=== PATIENT | male | born 1985 | race Hispanic/Latino ===

== ENCOUNTER 2021-09-01 20:52 | Emergency (ER) | payer SELFPAY ==
[2021-09-01 22:21] LABS: Urine Blood Trace-intact (Negative); Urine Glucose 2+ (Negative); Urine Protein Negative (Negative)
[2021-09-01 23:12] LABS: Absolute Lymphocytes (CBC) 1.5 K/uL (0.7-4.9); Hematocrit 47.6 % (39.6-49.0); Lymphocytes % 33.9 % (15.3-44.8); MPV 8.5 fL (7.6-11.3); RBC Red Blood Cell Count 5.42 M/uL (4.33-5.43)
[2021-09-01 23:13] LABS: Protime INR 1.05
[2021-09-01 23:17] LABS: Barbiturates NEGATIVE (NEGATIVE); Benzodiazepines NEGATIVE (NEGATIVE); Cocaine NEGATIVE (NEGATIVE); METHAMPHETAM NEGATIVE (NEGATIVE); Methadone NEGATIVE (NEGATIVE); Opiates NEGATIVE (NEGATIVE); Phencyclidine NEGATIVE (NEGATIVE); THC Cannibis POSITIVE (NEGATIVE)
[2021-09-01 23:23] LABS: ALT/SGPT 20 U/L (12-78); AST/SGOT 9 U/L (15-37); Albumin 3.5 g/dL (3.4-5.0); Alkaline Phosphatase 78 U/L (45-117); BUN Blood Urea Nitrogen 22 mg/dL (7-18); Bicarbonate 24 mmol/L (21-32); Bilirubin Direct < 0.1 mg/dL (0-0.2); Bilirubin Total 0.5 mg/dL (0.2-1.0); Potassium 3.9 mmol/L (3.5-5.1); Protein, Total 7.7 g/dL (6.4-8.2); Sodium Level 130 mmol/L (136-145)
[2021-09-01 23:25] LABS: Glucose Level 422 mg/dL (74-106)
[2021-09-02] MEDS ORDERED: NA CHLORIDE 0.9% 1,000 ML ONE (00:09)
[2021-09-02] MEDS ORDERED: INSULIN -REGULAR HUMAN 50 UNIT/0.5 ML ML ONE (00:09)
--- NOTE | 2021-09-02 01:14 | ER ---
Nurse's Notes [facility] Name: Kamlesh Neely Jr Age: 36 yrs Sex: Male : 1985 Arrival Date: 09/01/2021 Time: 20:53 Bed 18 Private MD: Diagnosis: Diabetes mellitus due to underlying condition with hyperglycemia;SARS-associated coronavirus as the cause of diseases classified elsewhere;Other recurrent depressive disorders Presentation: 09/01 21:47 Chief complaint: Patient states: recently from his , found out she may iw have been cheating , is having suicidal ideation , has superficial lacerations to both wrists, stopped taking his psych meds and stopped going to therapy, was living in [place] with his and came back to [place] a month ago. Coronavirus screen: At this time, the client does not indicate any symptoms associated with coronavirus-19. Ebola Screen: Patient negative for fever greater than or equal to 101.5 degrees Fahrenheit, and additional compatible Ebola Virus Disease symptoms Patient denies exposure to infectious person. Patient denies travel to an Ebola-affected area in the 21 days before illness onset. No symptoms or risks identified at this time. Initial Sepsis Screen: Does the patient meet any 2 criteria? No. Patient's initial sepsis screen is negative. Does the patient have a suspected source of infection? No. Patient's initial sepsis screen is negative. Risk Assessment: Do you want to hurt yourself or someone else? Patient reports desire/thoughts of hurting themselves or someone else. Provider notified. Onset of symptoms was September 01, 2021. 21:47 Method Of Arrival: Ambulatory iw 21:47 Acuity: CLARY 2 iw Historical: - Allergies: 21:55 Tamiflu; iw - PMHx: 21:55 depression with psychotic features; iw 23:54 Diabetes mellitus; ld1 23:55 Hypertensive disorder; Hypercholesterolemia; ld1 - PSHx: 21:55 left foot; iw - Immunization history:: Client reports having NOT received the Covid vaccine. - Social history:: Smoking status: Patient uses street drugs, marijuana. Screenin:00 Abuse screen: Denies threats or abuse. Denies injuries from another. Nutritional ld1 screening: No deficits noted. Tuberculosis screening: No symptoms or risk factors identified. Fall Risk None identified. Assessment: 22:00 General: Appears in no apparent distress. comfortable, Behavior is calm, cooperative, ld1 appropriate for age, crying. 22:00 Pain: Denies pain. Neuro: Level of Consciousness is awake, alert, obeys commands, ld1 Oriented to person, place, time, situation. Cardiovascular: Capillary refill < 3 seconds Patient's skin is warm and dry. Respiratory: Airway is patent Respiratory effort is even, unlabored, Respiratory pattern is regular, symmetrical. GI: Abdomen is round non-distended. : No signs and/or symptoms were reported regarding the genitourinary system. EENT: No signs and/or symptoms were reported regarding the EENT system. Derm: No signs and/or symptoms reported regarding the dermatologic system. 09/02 08:00 Reassessment: Pt is aaox4, when asked about SI/HI, reports "I still think I'm better eo2 off gone", denies HI. Pt states he's written 2 suicidal notes since he received e-mails from his , states his mother had encouraged him to reach out to her, states " I wanted to hurt myself, I wanted to when I saw those emails". Pt revealed that his told him in the email that "I destroyed our marriage, everything was my fault, that she doesn't know what poisoned my mind". Pt denies auditory or visual hallucinations. Pt is sad, tearful, states " I am an over thinker, I just miss her so much". Pt noted with healing lacerations to b/l arms, self inflicted with blade per pt. Pt denies any current plans to harm himself or others. Pt denies CP, SOB, GUERRERO, dizziness. Noted with cough, and reported lower back pain. Blood glucose check 267, Nathaniel CAROLINA made aware. Pt appears in NAD. Breakfast at bedside. Will continue to monitor. 08:00 Neuro: Level of Consciousness is awake, alert, obeys commands, Oriented to person, eo2 place, time, situation. Cardiovascular: No deficits noted. Denies chest pain, shortness of breath. Respiratory: Reports cough that is non-productive, Airway is patent Respiratory effort is even, unlabored, Respiratory pattern is regular, symmetrical, Denies shortness of breath. Musculoskeletal: Reports pain in lower back. 10:45 Reassessment: Pt's sister at bedside, Frieda [phone], Pt's mom info: Yessy eo2 [phone]. 15:48 Reassessment: Pt has been calm and cooperative, lunch tray provided, pt ate 50% of eo2 meals, complained of RAC PIV site discomfort, line checked, good blood return and flushes well, states it's okay to leave in place. Pt appears in NAD, comfort measures met, will continue to monitor. 18:08 Reassessment: pt requested to speak with his sister, provided the phone, pt noted to eo2 sitting behind the cabinet in the room, states he feels comfortable on the floor, denies any SI/HI at this time, verbalized "I'm not trying to hurt myself". Pt agreeable to be visible in the room, sitting in bed, quiet. Pt made aware his sister can come see him in the room. Dinner tray provided, pt in NAD. Will continue to monitor. 18:45 Reassessment: Pt's mother at bedside visiting with pt, pt speaking with mother, eo2 smiling, voiced desire to be discharged home with family, states he has a good support system and "My family love me". 19:39 Reassessment: Marin CARCAMO at bedside to speak with pt and sister, pt to be discharged home eo2 with family per PA. Psych: 08:00 [place] Suicide Severity Screening: In the past month, have you wished you were eo2 or wished you could go to sleep and not wake up? Patient responds "yes." "In the past month, have you actually had any thoughts of killing yourself?" Patient responds "yes." "In your lifetime, have you ever done anything, started to do anything, or prepared to do anything to end your life?" Patient responds "yes." Patient reports suicidal intent within 3 past months. Subjective: Patient's mood is sad, Delusions are denied, Hallucinations are denied Having thoughts of presently denies SI/HI. Objective: Patient is cooperative, Speech is normal, Affect is flat, Patient has mutilated themselves by B/L arm lacerations, pt states newest one was done 1.5 months ago. Interventions: Removed personal items and placed in bag. Pt received in report with personal clothes on, pt very calm and cooperative. Safety Checks: Personal items have been removed. Door is open. No visitors are present at this time. Pt denies substance abuse. Commitment: Patient will be a voluntary commitment. Vital Signs: 09/01 21:47 BP 151 / 104; Pulse 105; Resp 16; Temp 97.8; Pulse Ox 99% on R/A; iw 23:11 BP 149 / 99; Pulse 99; Resp 18; Pulse Ox 99% on R/A; ld1 09/02 00:10 BP 152 / 88; Pulse 86; Resp 18; Pulse Ox 100% on R/A; ld1 01:30 BP 148 / 89; Pulse 89; Resp 18; Pulse Ox 100% on R/A; ld1 03:27 BP 151 / 86; Pulse 87; Resp 18; Pulse Ox 99% on R/A; ld1 05:37 BP 149 / 91; Pulse 91; Resp 18; Pulse Ox 99% on R/A; ld1 08:00 BP 145 / 103; Pulse 97; Resp 17; Temp 99.0; Pulse Ox 95% ; Pain 3/10; eo2 12:00 BP 125 / 88; Pulse 102; Resp 17; Pulse Ox 98% ; Pain 3/10; eo2 ED Course: 09/01 20:53 Patient arrived in ED. ja2 21:51 Triage completed. iw 21:53 Marin Colbert PA is PHCP. cp 21:53 Isidro Jordan MD is Attending Physician. cp 21:56 Arm band placed on. iw 22:00 Patient has correct armband on for positive identification. Placed in gown. Bed in low ld1 position. Call light in reach. Side rails up X2. bus driver/monitor on. Pulse ox on. NIBP on. Door closed. Noise minimized. Warm blanket given. 22:00 No provider procedures requiring assistance completed. Inserted saline lock: 20 gauge ld1 in right antecubital area, using aseptic technique. Blood collected. 22:18 Mirna Mendieta RN is Primary Nurse. ld1 22:23 COVID-19 (Coronavirus) Document "Date of Onset" if Symptomatic Sent. ld1 09/02 01:23 contacted [facility] to have a screener evaluate the patient. mw2 04:27 faxed patient information to all available facilities. mw2 05:31 [facility] called they have to deny the patient due to his blood sugar being high. They mw2 stated "it has to be under 232 for 24 hours then you can re-initiate.". 06:39 PHCP role handed off by Marin Colbert PA pm1 06:39 Nathaniel Lang NP is PHCP. pm1 07:24 Faxed [facility] recommendation letter to [facility] . mb4 08:[address] [facility] called; advised [id number] could be done once a bed is secured.mb4 09:36 Spoke to Molly. Requested for notes to be re-faxed. mb4 14:16 [facility] advised patient is on the wait list. mb4 Administered Medications: 00:13 Drug: Insulin Regular Human 10 units {Co-Signature: sv1 (Cristian Michelle RN).} Route: ld1 IVP; Site: right antecubital; 08:00 Follow up: Response: No adverse reaction eo2 00:15 Drug: NS 0.9% 1000 ml Route: IV; Rate: 1 bolus; Site: right antecubital; ld1 08:00 Follow up: IV Status: Completed infusion; Completed infusion. No infusio noted at start eo2 of shift; IV Intake: 1000ml Intake: 08:00 IV: 1000ml; Total: 1000ml. eo2 Outcome: 01:13 ER care complete, transfer ordered by MD. cp 02:54 ER care complete, transfer ordered by MD. cp 20:00 Patient left the ED. mw2 Signatures: Ashlyn Rush RN RN iw Marin Colbert PA PA cp Nathaniel Lang NP [employer] pm1 Violetta Baig mw2 Annia Grey mb4 Mirna Mendieta RN RN ld1 Sheree Pelayo Eunice, RN RN eo2 Cristian Michelle RN sv1 Corrections: (The following items were deleted from the chart) 09/01 21:56 21:47 BP 151 / 104; Pulse 105bpm; Resp 16bpm; Pulse Ox 99% RA; Temp 97.8F; iw iw 22:59 22:23 CORONAVIRUS drawn and sent. ld1 EDMS
--- NOTE | 2021-09-02 01:14 | EDPHYS ---
Physician Documentation [facility] Name: Kamlesh Neely Jr Age: 36 yrs Sex: Male : 1985 Arrival Date: 09/01/2021 Time: 20:53 Bed 18 Private MD: ED Physician Isidro Jordan HPI: 09/01 22:10 This 36 yrs old Male presents to ER via Ambulatory with complaints of Psych cp Problem. 22:10 The patient presents to the emergency department with depression, over a relationship, cp recent separation from . Onset: The symptoms/episode began/occurred about 1 month ago. Historical: - Allergies: 21:55 Tamiflu; iw - PMHx: 21:55 depression with psychotic features; iw 23:54 Diabetes mellitus; ld1 23:55 Hypertensive disorder; Hypercholesterolemia; ld1 - PSHx: 21:55 left foot; iw - Immunization history:: Client reports having NOT received the Covid vaccine. - Social history:: Smoking status: Patient uses street drugs, marijuana. ROS: 22:15 Constitutional: Negative for body aches, chills, fever, poor PO intake. cp 22:15 Eyes: Negative for injury, pain, redness, and discharge. cp 22:15 ENT: Positive for sore throat. 22:15 Cardiovascular: Negative for chest pain. 22:15 Respiratory: Positive for cough. 22:15 Abdomen/GI: Negative for abdominal pain, nausea, vomiting, and diarrhea. Exam: 22:20 Constitutional: The patient appears in no acute distress, alert, awake, cp non-diaphoretic, non-toxic, well developed, well nourished, obese. 22:20 Head/Face: Normocephalic, atraumatic. cp 22:20 Eyes: Periorbital structures: appear normal, Conjunctiva: normal, no exudate, no injection, Lids and lashes: appear normal, bilaterally. 22:20 ENT: External ear(s): are unremarkable, Nose: is normal, Posterior pharynx: Airway: no evidence of obstruction, patent. 22:20 Chest/axilla: Inspection: normal. 22:20 Cardiovascular: Rate: tachycardic, Rhythm: regular. 22:20 Respiratory: the patient does not display signs of respiratory distress, Respirations: normal, no use of accessory muscles, no retractions, labored breathing, is not present, Breath sounds: are clear throughout, no decreased breath sounds. 22:20 Abdomen/GI: Exam negative for discomfort, distension, guarding, Inspection: abdomen appears normal. 22:20 Neuro: Orientation: to person, place \\T\\ time. Mentation: is normal, Motor: moves all fours, strength is normal, Sensation: is normal. 22:20 Psych: Behavior/mood is cooperative, depressed, Affect is flat, Patient having thoughts of suicide. to cut wrists Judgement / Insight is normal. Delusions/hallucinations are not present. 22:50 ECG was reviewed by the Attending Physician. cp Vital Signs: 21:47 BP 151 / 104; Pulse 105; Resp 16; Temp 97.8; Pulse Ox 99% on R/A; iw 23:11 BP 149 / 99; Pulse 99; Resp 18; Pulse Ox 99% on R/A; ld1 09/02 00:10 BP 152 / 88; Pulse 86; Resp 18; Pulse Ox 100% on R/A; ld1 01:30 BP 148 / 89; Pulse 89; Resp 18; Pulse Ox 100% on R/A; ld1 03:27 BP 151 / 86; Pulse 87; Resp 18; Pulse Ox 99% on R/A; ld1 05:37 BP 149 / 91; Pulse 91; Resp 18; Pulse Ox 99% on R/A; ld1 08:00 BP 145 / 103; Pulse 97; Resp 17; Temp 99.0; Pulse Ox 95% ; Pain 3/10; eo2 12:00 BP 125 / 88; Pulse 102; Resp 17; Pulse Ox 98% ; Pain 3/10; eo2 MDM: 09/01 21:57 Patient medically screened. cp 09/02 00:00 Data reviewed: vital signs, nurses notes, lab test result(s), EKG. cp 03:05 ED course: consult with [facility] psychiatric social worker, Jay Reyes, recommends inpatient cp treatment. 08:39 ED course: Patient with continued depression that appears to be focused on marital pm1 issues with his . He believes that she is cheating on him with multiple people. Patient has moved back here to [place] from [place] for the past month, with staying in [place]. Patient has stopped taking his medications for many years. He was taking Geodon, Haldol, Abilify, and antidepressant. Patient stopped taking medications because they do make him feel well. Patient also stopped taking his medications for diabetes, Metformin 1000 mg twice daily, about 2 to 3 months ago. Patient reports feeling suicidal for multiple months, and does not currently have a plan. Patient with scars to bilateral wrists, that were result of his suicide attempt approximately a month ago. Patient cut his wrists and went to sleep and woke up disappointed and he was not . 19:39 ED course: VSS. Patient reports he is not suicidal at this point. Will be staying with cp sister who agrees to continue to monitor patient. 09/01 21:53 Order name: Acetaminophen; Complete Time: 23:58 09/01 23:58 Interpretation: Reviewed. 09/01 21:53 Order name: Basic Metabolic Panel; Complete Time: 23:58 09/01 23:59 Interpretation: Normal except: NA 130; GLUC 422; BUN 22; GFR 88. 09/01 21:53 Order name: CBC with Diff; Complete Time: 23:58 09/01 23:59 Interpretation: Normal except: MN% 13.8. 09/01 21:53 Order name: ETOH Level; Complete Time: 23:58 09/01 21:53 Order name: Hepatic Function; Complete Time: 23:58 09/01 21:53 Order name: PT-INR; Complete Time: 23:58 09/01 21:53 Order name: Ptt, Activated; Complete Time: 23:58 09/01 21:53 Order name: Salicylate; Complete Time: 23:58 09/01 21:53 Order name: Urine Drug Screen; Complete Time: 23:58 09/01 23:59 Interpretation: Abnormal: THC POSITIVE. 09/01 22:12 Order name: COVID-19 (Coronavirus) Document "Date of Onset" if Symptomatic 09/01 22:20 Order name: Urine Dipstick-Ancillary; Complete Time: 23:58 EDMS 09/01 23:59 Interpretation: Normal except: UGLUC 2+; UKET 1+; UBLD Trace-intact. 09/01 22:59 Order name: SARS-COV-2 RT PCR; Complete Time: 00:23 EDMS 09/02 00:23 Interpretation: SARSCOV2 RT PCR POSITIVE; Results reviewed. 09/02 03:36 Order name: Glucose, Ancillary Testing; Complete Time: 06:02 EDMS 09/01 21:53 Order name: EKG; Complete Time: 21:54 cp 09/01 21:53 Order name: EKG - Nurse/Tech; Complete Time: 22:45 cp 09/01 21:53 Order name: IV Saline Lock; Complete Time: 22:23 cp 09/01 21:53 Order name: Labs collected and sent; Complete Time: 22:23 cp 09/01 21:53 Order name: Suicide Precautions; Complete Time: 03:26 cp 09/01 21:53 Order name: Suicide Screening ([place]); Complete Time: 03:26 cp 09/01 21:53 Order name: Urine Dipstick-Ancillary (obtain specimen); Complete Time: 22:23 cp 09/02 07:08 Order name: Diet Regular; Complete Time: 07:08 mw2 09/02 08:05 Order name: Glucose Level; Complete Time: 10:44 pm1 09/02 08:21 Order name: Glucose, Ancillary Testing; Complete Time: 08:24 EDMS EC/26 22:50 Rate is 96 beats/min. Rhythm is regular. MO interval is normal. QRS interval is normal. cp QT interval is normal. T waves are Inverted in lead aVR. Interpreted by me. Reviewed by me. Administered Medications: 09/02 00:13 Drug: Insulin Regular Human 10 units {Co-Signature: sv1 (Cristian Michelle RN).} Route: ld1 IVP; Site: right antecubital; 08:00 Follow up: Response: No adverse reaction eo2 00:15 Drug: NS 0.9% 1000 ml Route: IV; Rate: 1 bolus; Site: right antecubital; ld1 08:00 Follow up: IV Status: Completed infusion; Completed infusion. No infusio noted at start eo2 of shift; IV Intake: 1000ml Disposition: 06:02 Co-signature as Attending Physician, Isidro Jordan MD. pkl Disposition Summary: 09/02/21 02:54 Transfer Ordered Transfer Location: [facility](09/02/21 02:54) cp Reason: Higher level of care(09/02/21 02:54) cp Condition: Stable(09/02/21 02:54) cp Problem: an ongoing problem(09/02/21 02:54) cp Symptoms: are unchanged(09/02/21 02:54) cp Accepting Physician: Doctor(09/02/21 20:00) mw2 Diagnosis - Diabetes mellitus due to underlying condition with hyperglycemia(09/02/21 02:54) cp - SARS-associated coronavirus as the cause of diseases classified elsewhere cp - Other recurrent depressive disorders cp Discharge Instructions: - Discharge Summary Sheet cp - Blood Glucose Monitoring, Adult cp - Diabetes Mellitus and Nutrition, Adult cp - COVID-19 cp - Managing Depression, Adult cp - Things to Know about the COVID-19 Pandemic - [facility] cp - 10 Things You Can Do to Manage Your COVID-19 Symptoms at Home - [facility] cp - COVID-19: Quarantine vs. Isolation - [facility] cp - Prevent the Spread of COVID-19 if You Are Sick - [facility] cp Forms: - Medication Reconciliation Form cp - SBAR form cp Prescriptions: - Metformin 1,000 mg Oral Tablet - take 1 tablet by ORAL route every 12 hours with morning and evening meals; 60 cp tablet; Refills: 0, Product Selection Permitted Signatures: Dispatcher [employer] EDMS Isidro Jordan MD MD pkl Ashlyn Rush RN RN iw Marin Colbert PA PA cp Nathaniel Lang, [employer] pm1 Violetta Baig mw2 Mirna Mendieta RN RN ld1 Kalpana Quiroga RN eo2 Cristian Michelle RN sv1 Corrections: (The following items were deleted from the chart) 09/01 22:59 22:12 CORONAVIRUS ordered. EDFL EDMS 09/02 01:14 01:13 Doctor cp cp 01:14 01:13 Psych Facility cp cp 01:14 01:13 Higher level of care cp cp 01:14 01:13 Stable cp cp 01:14 01:13 new cp cp 01:14 01:13 are unchanged cp cp 01:14 01:13 Suicidal ideations cp cp 01:14 01:13 Diabetes mellitus due to underlying condition with hyperglycemia cp cp 19:41 02:54 Doctor cp cp 19:41 02:54 Suicidal ideations cp cp 20:00 19:41 Doctor cp mw2
[2021-09-02 20:33] VITALS: TEMP 99
[2021-09-02 20:35] VITALS: BP 125/88; O2SAT 98
== END 2021-09-02 20:00 ==
LOC: EDBD 20:52 → ER 20:52
DX: F33.8 Other recurrent depressive disorders (principal); U07.1 COVID-19; E11.65 Type 2 diabetes mellitus with hyperglycemia; I10 Essential (primary) hypertension; Z88.8 Allergy status to other drugs, medicaments and biological substances
CPT/HCPCS: 36415; 80048; 80076; 80307; 80320; 80329; 81003; 82947; 85025; 85610; 85730; 93005; 96361; 96374; 99285; J7030; U0003